=== PATIENT | female | born 1975 | race Caucasian/White ===

== ENCOUNTER 2016-06-27 10:23 | Outpatient (CLI) | payer BC, OTHER ==
[2016-06-27 10:46] LABS: BASOPHILS % 0.7 (0.0-1.5); EOSINOPHILS % 1.1 % (0.0-6.8); LYMPHOCYTES # 1.9 # k/uL (0.6-4.0); MEAN CORPUSCULAR HEMOGLOBIN 28.3 pg (28.0-34.0); MONOCYTES # 0.4 # k/uL (0.0-0.9); MONOCYTES % 4.7 % (0.0-11.0)
[2016-06-27 11:23] LABS: eGFR (African) > 60; eGFR (Non-African) > 60
== END 2016-06-27 10:24 ==
LOC: LAB 10:23
PROVIDERS: ATTEND Physician Assistant
DX: R00.0 Tachycardia, unspecified (principal); Z00.00 Encounter for general adult medical examination without abnormal findings
CPT/HCPCS: 36415; 80053; 84443; 85025

== ENCOUNTER 2017-09-27 11:03 | Outpatient (CLI) | payer BC, OTHER ==
[2017-09-27 11:23] LABS: BASOPHILS % 0.7 (0.0-1.5); EOSINOPHILS % 2.4 % (0.0-6.8); MEAN CORPUSCULAR HEMOGLOBIN 29.6 pg (28.0-34.0); MEAN CORPUSCULAR VOLUME 89.6 fl (80.0-100.0); MONOCYTES % 4.2 % (0.0-11.0); NEUTROPHILS # 3.7 # k/uL (1.4-7.7)
[2017-09-27 11:46] LABS: eGFR (African) > 60; eGFR (Non-African) > 60
== END 2017-09-27 11:04 ==
LOC: RT 11:03
PROVIDERS: ATTEND Physician Assistant
DX: R07.9 Chest pain, unspecified (principal); I10 Essential (primary) hypertension
CPT/HCPCS: 36415; 80053; 84484; 85025

== ENCOUNTER 2017-11-06 08:57 | Outpatient (CLI) | payer BC ==
[2017-11-06 09:32] LABS: APPEARANCE,URINE CLEAR (CLEAR); COLOR,URINE YELLOW (YELLOW); OCCULT BLOOD,URINE TRACE-INTACT (NEGATIVE); UROBILINOGEN URINE 0.2 Eu (0.2-1.0)
== END 2017-11-06 09:00 ==
LOC: LAB 08:57
PROVIDERS: ATTEND Internal Medicine Cardiovascular Disease
DX: E78.4 Other hyperlipidemia (principal); I10 Essential (primary) hypertension
CPT/HCPCS: 36415; 80061; 81002; 83036; 86141

== ENCOUNTER 2019-01-31 09:39 | Outpatient (CLI) | payer BC ==
[2019-01-31 10:01] LABS: A1C 5.2 % (<5.7)
[2019-01-31 10:55] LABS: HDL 46 mg/dL (>40); eGFR (Non-African) > 60
== END 2019-01-31 09:44 ==
LOC: LAB 09:39
PROVIDERS: ATTEND Internal Medicine Cardiovascular Disease
DX: I10 Essential (primary) hypertension (principal)
CPT/HCPCS: 36415; 80053; 80061; 83036; 84443; 85027